=== PATIENT | male | born 1960 | race African-American/Black ===

== ENCOUNTER 2021-12-14 00:12 | Inpatient (IN) | payer SELFPAY ==
[~2021-12-14] VITALS: Ht 195.6 cm; Wt 73.2 kg
[2021-12-14] VITALS (7 sets, daily range): BP systolic 93–135; BP diastolic 53–80
--- NOTE | 2021-12-14 00:01 | NUR ---
Direct admit via EMS from [facility]. Patient states he's had a stroke before. Unable to give details. Speech is garbled. No facial droop noted. Right hand grasp slightly weaker than left. Able to read. Soaked in urine. Had 4 pairs of shorts. Belongings sent w/ Security. (to include glass pipe).
[2021-12-14 05:06] LABS: HEMATOCRIT 30.9 % (39.0-53.0); HEMOGLOBIN 10.9 g/dL (13.0-17.5); RED BLOOD COUNT 3.41 x10^6/uL (4.30-5.70); RED CELL DISTRIBUTION WIDTH 13.2 % (11.5-14.5); WHITE BLOOD COUNT 5.2 x10^3/uL (4.0-11.0)
[2021-12-14 05:34] LABS: ALBUMIN 3.1 g/dL (3.4-5.0); ALBUMIN/GLOBULIN RATIO 0.9 (1.0-1.7); CALCIUM 8.7 mg/dL (8.5-10.1); CREATININE 1.2 mg/dL (0.7-1.3); POTASSIUM 3.5 mmol/L (3.5-5.1); TOTAL BILIRUBIN 0.4 mg/dL (0.2-1.0); TOTAL PROTEIN 6.7 g/dL (6.4-8.2)
--- NOTE | 2021-12-14 07:08 | NUR ---
Consult to Dr Pavon called.
--- NOTE | 2021-12-14 11:34 | PDOC2 ---
CONSULT Date of Consult Date of Consult Neurology Consultation DATE: 12/14/21 TIME: 11:22 Reason for Consult Reason for Consult: Stroke Referring Physician Referring Physician: Dr. Enrico Baldwin History of Present Illness Reason for Visit: Balbir Maldonado is a 61-year-old man directly admitted from [facility]. I do not have any records at the time of my evaluation. The patient was the primary historian. He notes that he developed difficulty with speech and right-sided numbness and weakness. Last known normal is not known. He was not a candidate for intravenous alteplase. He does not complain of any headache. He has not noticed a change of thinking, vision or hearing. He has not been to a doctor for many years. It sounds as if he does not take any medications at home. He is not aware of any medical conditions. Past Medical History Past Medical History He denies any prior medical conditions. Renal/: Prostate Ca. Family History Family History He is not aware of any diseases that run in his family. Social History Social History He denies smoking tobacco, drinking alcohol or using recreational drugs. Allergies Allergies: Coded Allergies: No Known Drug Allergies (Unverified , 12/14/21) ROS Review of System Constitutional: Negative Eyes: He has not noticed a change of vision. HENT: Negative Respiratory: He denies cough. Cardiovascular: He has not had chest pain. GI: Does have a history of prostate cancer. : Negative Musculoskeletal: Negative Neurologic: He has had difficulty with speech, right-sided weakness and right-sided numbness. Hematologic: Negative Lymphatic: Negative Endocrine: He is not aware of ever having diabetes. Psychiatric: Negative Physical Exam Physical Exam He was alert, awake and cooperative. The speech was dysarthric and difficult to understand. Some of the words were understandable. He did not have word salad. He had a limited fund of recent and remote knowledge. Attention and concentration was intact. He was well-groomed and well-nourished. He was fully oriented. Examination of the cranial nerves revealed visual aguirre were not full to confrontation. He had a right lower quadrantanopsia. Extraocular movements were intact. The eyes were conjugate. Pursuit movements were smooth and saccadic movements were without dysmetria. The pupils were 2-3 millimeters and reacted to light. Funduscopic examination did not reveal papilledema, exudate or hem orrhage on the right. I was not able to get a good look at the left disc. Facial sensation was intact. The muscles of mastication were powerful symmetrically. He had a right facial droop. He had severe weakness to right smile. He was still able to close his right eye but it was delayed compared to the left. Hearing was intact to finger rub. The palate arch symmetrically and t he tongue was midline with full range of motion. Sternocleidomastoid and trapezius were powerful with weakness on the right. Muscle bulk and tone was normal. He did have some right arm and leg drift. There was no abnormal movement. The power was full and symmetric in the upper and lower extremities on the left. He had right hemiparesis with power 4+ on the right. Reflexes were 2/4 and symmetric in the upper extremities. Reflexes were absent at the knees and ankles bilaterally. The toes were downgoing bilaterally. Coordination testing with finger to nose, heel to glover, fine motor and rapid alternating movements was well performed on the left but there was ataxia and slowness on the right. The sensory examination was intact to pain, light touch, proprio ception, graphesthesia, cold thermal and vibration on the left but there was sensory shading on the right. There was a stocking distribution of sensory loss in both legs to above the ankles to sharp, cold thermal and vibration. There was no extinction to double simultaneous stimulation. The gait was not testable. Sitting balance was good. Auscultation of the carotid arteries did not reveal a bruit. Heart rhythm was regular without a murmur. Peripheral pulses are 2/4 at the wrists and feet. There was no edema or cyanosis of the extremities. Vitals VITALS Vital Signs Date Time Temp Pulse Resp B/P (MAP) Pulse Ox O2 Delivery O2 Flow Rate FiO2 12/14/21 11:00 98.1 71 16 93/53 (66) 98 Room Air 98.1 Labs Labs Laboratory Tests Test 12/14/21 04:30 White Blood Count 5.2 x10^3/uL (4.0-11.0) Red Blood Count 3.41 x10^6/uL (4.30-5.70) Hemoglobin 10.9 g/dL (13.0-17.5) Hematocrit 30.9 % (39.0-53.0) Mean Corpuscular Volume 91 fL (79-100) Mean Corpuscular Hemoglobin 32 pg (25-35) Mean Corpuscular Hemoglobin Concent 35 g/dL (31-37) Red Cell Distribution Width 13.2 % (11.5-14.5) Platelet Count 133 x10^3/uL (140-400) Sodium Level 139 mmol/L (136-145) Potassium Level 3.5 mmol/L (3.5-5.1) Chloride Level 106 mmol/L (98-107) Carbon Dioxide Level 24 mmol/L (21-32) Anion Gap 9 (6-14) Blood Urea Nitrogen 23 mg/dL (8-26) Creatinine 1.2 mg/dL (0.7-1.3) Estimated GFR (Cockcroft-Gault) 74.0 BUN/Creatinine Ratio 19 (6-20) Glucose Level 101 mg/dL (70-99) Calcium Level 8.7 mg/dL (8.5-10.1) Total Bilirubin 0.4 mg/dL (0.2-1.0) Aspartate Amino Transf (AST/SGOT) 29 U/L (15-37) Alanine Aminotransferase (ALT/SGPT) 29 U/L (16-63) Alkaline Phosphatase 57 U/L (46-116) Total Protein 6.7 g/dL (6.4-8.2) Albumin 3.1 g/dL (3.4-5.0) Albumin/Globulin Ratio 0.9 (1.0-1.7) Laboratory Tests Test 12/14/21 04:30 White Blood Count 5.2 x10^3/uL (4.0-11.0) Red Blood Count 3.41 x10^6/uL (4.30-5.70) Hemoglobin 10.9 g/dL (13.0-17.5) Hematocrit 30.9 % (39.0-53.0) Mean Corpuscular Volume 91 fL (79-100) Mean Corpuscular Hemoglobin 32 pg (25-35) Mean Corpuscular Hemoglobin Concent 35 g/dL (31-37) Red Cell Distribution Width 13.2 % (11.5-14.5) Platelet Count 133 x10^3/uL (140-400) Sodium Level 139 mmol/L (136-145) Potassium Level 3.5 mmol/L (3.5-5.1) Chloride Level 106 mmol/L (98-107) Carbon Dioxide Level 24 mmol/L (21-32) Anion Gap 9 (6-14) Blood Urea Nitrogen 23 mg/dL (8-26) Creatinine 1.2 mg/dL (0.7-1.3) Estimated GFR (Cockcroft-Gault) 74.0 BUN/Creatinine Ratio 19 (6-20) Glucose Level 101 mg/dL (70-99) Calcium Level 8.7 mg/dL (8.5-10.1) Total Bilirubin 0.4 mg/dL (0.2-1.0) Aspartate Amino Transf (AST/SGOT) 29 U/L (15-37) Alanine Aminotransferase (ALT/SGPT) 29 U/L (16-63) Alkaline Phosphatase 57 U/L (46-116) Total Protein 6.7 g/dL (6.4-8.2) Albumin 3.1 g/dL (3.4-5.0) Albumin/Globulin Ratio 0.9 (1.0-1.7) Assessment/Plan Assessment/Plan Patient is a 61-year-old man who clinically appears to have had a left hemispheric stroke in the distribution of the middle cerebral artery. He has deficits with dysarthric speech, right hemiparesis and right hemisensory loss. It is possible this is in the posterior fossa affecting some of the connections with the brainstem and cerebellum as well. He has a significant peripheral neuropathy which makes me concerned that there may be underlying diabetes. We will need to monitor for occult health issues that could be risk factors for stroke. The stroke order set will need to be activated. He will need to be evaluated by the therapies. I will reevaluate. KHUSHBU PRECIADO MD December 14, 2021 11:33
[2021-12-14] MEDS ORDERED: ACETAMINOPHEN 325 MG TABLET. PO PRN (11:45)
[2021-12-14] MEDS ORDERED: ASPIRIN CHEWABLE 81 MG TABLET. PO ONE (12:30)
--- NOTE | 2021-12-14 16:14 | HP ---
DATE OF SERVICE: 12/14/2021 ADMIT DATE: 12/14/2021 HISTORY OF PRESENT ILLNESS: The patient is a 61-year-old -[place] male patient, a , who presents with altered mental status. He was seen lying down in a garden by a concerned citizen and EMS was called in. The patient stated that he had been drinking. He drank about 5 beers according to him. The patient was celebrating his birthday. The patient reports he normally goes to the [place], has been there a couple of days visiting a friend for the . The patient stated he does not drink alcohol every day, preferably whiskey, but no preference. The patient does not smoke, reports no trauma. He was extensively investigated in the Emergency Room and has had lab work and imaging studies. His lab work showed his CBC to be unremarkable. His chemistry showed he has impaired kidney function. His D-dimer was high at 2.79; however, PT, INR and APTT are normal. Urinalysis was essentially unremarkable; however, toxic screen was positive for amphetamine, methamphetamine, cocaine, cannabinoids as well as alcohol. He has had a CT scan of the head, which basically showed that the patient has no evidence of an acute infarct or other acute parenchymal process, no evidence of acute intracranial hemorrhage, no evidence of intracranial mass or extraaxial fluid collection, no significant mass effect. He does have encephalomalacia in the left frontoparietal, anterior inferior left frontal lobes compatible with remote infarct, somewhat more mass-like area of slightly drowsiness, hypoattenuation in the inferolateral right frontal lobe, possibly also related to a remote infarct, but incompletely evaluated, has mild generalized volume loss with ventricular enlargement concordant to the degree of parenchymal volume loss. The visualized paranasal sinuses are clear. The visualized skull base and soft tissues are unremarkable. The patient was transferred to [facility] with altered mental status with abnormal findings on the CT scan with a plan to consider MRI for further evaluation and to consult the neurologist. PAST MEDICAL HISTORY: Significant for benign prostatic hypertrophy and overactive bladder together with prostate cancer. He also stated that he had 2 strokes before with resultant right-sided hemiplegia. PAST SURGICAL HISTORY: Significant for prostatectomy. FAMILY HISTORY: Unremarkable. SOCIAL HISTORY: He is single, lives alone. He does not smoke; however, he does drink alcohol and apparently using marijuana, cocaine and amphetamine. ALLERGIES: He has no known drug allergies. MEDICATIONS: He is on hyoscyamine 125 mcg sublingually every 4 hours, oxycodone/APAP 5/325 one tablet every 6 hours, Senna-S 1 tablet twice a day, scopolamine transdermal patch topically every 72 hours, and oxybutynin chloride 10 mg once a day. PHYSICAL EXAMINATION: GENERAL: On arrival to the Emergency Room, the patient looked well and was clearly in no apparent respiratory distress. There was no pallor, jaundice, cyanosis or thyromegaly. No jugular venous distention. No lower limb edema. VITAL SIGNS: His heart rate was 77, blood pressure was 139/81, temperature 97.7, respiratory rate was 18 and oxygen saturation was 99% on room air. HEAD, EYES, EARS, NOSE, AND THROAT: Normocephalic, atraumatic. NECK: Supple. HEART: Showed normal first and second heart sounds. No gallop or murmur. CHEST: Clear to auscultation. No crepitation or rhonchi. ABDOMEN: Scaphoid, soft, nontender. NEUROLOGIC: He was awake, alert, responding appropriately. He has all his cranial nerves intact except he has right-sided facial weakness. He has also right-sided hemiparesis. LABORATORY DATA: His lab work showed a white cell count of 6.2, hemoglobin 12, hematocrit 35, MCV 92 and platelet count of 151,000. Serum sodium was 136, potassium 4, chloride 101, bicarbonate 23, anion gap of 12, BUN 27, creatinine 1.5. Estimated GFR was 47 mL per minute. His glucose 100, calcium was 8.8, magnesium was 1.8. Total bilirubin, AST, ALT, alkaline phosphatase were normal. CK was 368. Troponin I high sensitivity was 23. Beta natriuretic peptide was 193. Total protein was 6.7, albumin was 3.6. His prothrombin time was 10.6, INR 1, APTT was less than 21; however, D-dimer was 2.79. Urinalysis showed the urine was yellow, clear with a pH of 5.5, specific gravity of 1.030. There was small amount of protein. The urine was negative for glucose, ketones, blood, nitrite and bilirubin, it was negative for leukocyte esterase, no rbc's, no wbc's and no bacteria. His toxicology screen was positive for amphetamine, methamphetamine, cocaine, cannabinoids, and alcohol. His influenza A and B were negative as well as the coronavirus by rapid antigen testing. His chest x-ray showed normal heart size with no evidence of focal airspace consolidation, pleural effusion, pneumothorax, probable mild bibasilar subsegmental atelectasis and/or scarring. Bones and soft tissues, no acute osseous abnormality. ASSESSMENT: The patient was transferred to [facility] with: 1. Altered mental status, likely due to polysubstance abuse. 2. The patient definitely has right-sided facial weakness and right-sided hemiparesis, likely due to an old infarct. He is known to have benign prostatic hypertrophy and prostate cancer, status post prostatectomy. PLAN: My plan is obviously to consult the neurologist as well as physical and occupational therapist. We will check his fasting lipid profile. AISHWARYA/SEBLE/FELICIANO DR: Rudolph TID: [id number]
[2021-12-15 02:36] VITALS: BP 127/73
[2021-12-15 05:52] LABS: CHOLESTEROL/HDL RATIO 3.4
[2021-12-15 06:31] VITALS: BP 139/76
--- NOTE | 2021-12-15 07:14 | RAD ---
EXAM: Carotid Doppler sonogram. HISTORY: Stroke. Atherosclerosis. TECHNIQUE: Baker scale and color Doppler sonographic evaluation of the neck with spectral waveform shilpa lysis was performed and static images are submitted for review. FINDINGS: There is mild atherosclerotic plaque involving the proximal internal carotid arteries. The peak systolic velocity within the right common carotid artery is 80 cm/sec. The peak systolic leyda ocity within the right internal carotid artery is 68 cm/sec and the end diastolic velocity within the right internal carotid artery is 20 to cm/sec. The right ICA/CCA ratio is 0.84. The peak systolic velocity within the left common carotid artery is 91 cm/sec. The peak systolic [place] within the left internal carotid artery is 66 cm/sec and the end diastolic velocity within the l eft internal carotid artery is 20 to cm/sec. The left ICA/CCA ratio is 0.78. There is normal antegrade flow within both vertebral arteries. IMPRESSION: Doppler findings consistent with less than 50 percent stenosis involving the internal car otid arteries. PQRS Compliance Statement - Stenosis calculations for CT, MR and conventional angiography are based u arlette measurement of the distal ICA diameter in accordance with the NASCET methodology. Stenosis calcu lations for carotid ultrasound studies are derived from validated velocity criteria which are known t o correlate with the NASCET methodology. Electronically signed by: Cary Pruitt MD (12/15/2021 7:11 AM) [id number]
[2021-12-15] MEDS ORDERED: GADOTERATE 7.5 MMOL/15ML VIAL. IVP ONE (09:15)
[2021-12-15] MEDS ORDERED: HALOPERIDOL LACTATE 5 MG/ML VIAL. IVP PRN (10:00)
[2021-12-15 11:00] VITALS: BP 135/87
[2021-12-15] MEDS: ASPIRIN CHEWABLE 81 MG TABLET. PO SCH (13:57)
[2021-12-15] MEDS: MULTIVIT INFUSN,ADULT 4,VIT K 10 ML, THIAMINE INJ 100 MG, FOLIC ACID INJ 1 MG in IV NOR... IV SCH (13:58)
[2021-12-15 14:54] VITALS: BP 131/81
--- NOTE | 2021-12-15 14:57 | RAD ---
EXAM: Brain MRI with and without contrast. HISTORY: Stroke or mass. TECHNIQUE: Multiplanar, multisequence magnetic resonance imaging of the brain was performed prior to and following the administration of intravenous contrast. COMPARISON: CT dated 12/13/2021. FINDINGS: There is restricted diffusion within the left frontotemporal junction, consistent with acut e infarction. There are a few foci of acute cortical infarction involving the adjacent left parietal and occipital lobes. There is slight increased signal on diffusion images associated with a right frontal lobe infarct lik saima due to T2 shine through artifact. This is chronic in appearance. There are also chronic infarct w ithin the medial left frontal lobe, left parietal lobe, left cerebellum and right caudate nucleus. There is mild cerebral volume loss. There is no mass effect or midline shift. There is no hydrocephal us. There is mild left necrosis associated with the aforementioned chronic left parietal infarct. The orbits are unremarkable. There is a small right maxillary sinus mucous retention cysts. There is minimal mastoid fluid. There are normal flow voids within the cerebral vessels. There is no suspiciou s calvarial lesion. There is no suspicious enhancing lesion. IMPRESSION: 1. Acute infarct involving the left frontotemporal junction and scattered surrounding acute cortical infarcts involving the left parietal and occipital lobes. 2. Chronic infarcts involving the bilateral frontal lobes, left parietal lobe, left cerebellum and ri ght caudate nucleus. 3. No suspicious enhancing lesion. Findings were discussed with Monika, the nurse caring for the patient, at 1450 hours on 12/15/2021. FOR INTERNAL CODING PURPOSES RESULT CODE: (C) Electronically signed by: Cary Pruitt MD (12/15/2021 2:55 PM) [id number]
--- NOTE | 2021-12-15 16:22 | PDOC ---
PROGRESS NOTES Date of Service DATE: 12/15/21 TIME: 16:17 Assessment Patient is a pleasant 61-year-old man with previous strokes whose had a new stroke in the left temporoparietal region. This has caused some expressive aphasia and right hemiparesis. The carotid Doppler did not reveal any hemodynamically significant stenosis. Echocardiogram is pending. Lipid profile revealed elevated LDL at 93. He is on aspirin and atorvastatin to reduce stroke risk. He will need to work with the therapist. Depending on his walking status will depend if he will require inpatient rehabilitation. He is already showing some signs of improvement with strength on the right side and speech. Plan He will work with the therapist. He will continue aspirin and atorvastatin. Blood pressure will need to be closely monitored and treated. Goal blood pressure ultimately 120/80. LDL cholesterol needs to be less than 70. Subjective I feel okay. I was not taking aspirin at home. Objective Vital Signs Date Time Temp Pulse Resp B/P (MAP) Pulse Ox O2 Delivery O2 Flow Rate FiO2 12/15/21 14:54 98.0 65 16 131/81 (98) 98 Room Air 98.0 Intake and Output 12/15/21 07:00 Intake Total 360 ml Balance 360 ml Intake Oral 360 ml # Voids 2 PHYSICAL EXAM He was alert, awake and cooperative. Speech appeared more fluent. Attention and concentration was intact. He was able to follow commands fairly well. Examination of the cranial nerves revealed visual aguirre appeared full. Extraocular movements were intact. The eyes were conjugate. Pursuit movements were smooth and saccadic eye movements were without dysmetria. Facial sensation was intact. Smile was symmetric and tongue was midline. Muscle bulk and tone was normal. There was no arm drift. Power was actually full in the upper and lower extremities. Sensation was intact to light touch. Review of Relevant I have reviewed the following items clifford (where applicable) has been applied. Labs Laboratory Tests Test 12/14/21 04:30 12/15/21 04:30 White Blood Count 5.2 x10^3/uL (4.0-11.0) Red Blood Count 3.41 x10^6/uL (4.30-5.70) Hemoglobin 10.9 g/dL (13.0-17.5) Hematocrit 30.9 % (39.0-53.0) Mean Corpuscular Volume 91 fL (79-100) Mean Corpuscular Hemoglobin 32 pg (25-35) Mean Corpuscular Hemoglobin Concent 35 g/dL (31-37) Red Cell Distribution Width 13.2 % (11.5-14.5) Platelet Count 133 x10^3/uL (140-400) Sodium Level 139 mmol/L (136-145) Potassium Level 3.5 mmol/L (3.5-5.1) Chloride Level 106 mmol/L (98-107) Carbon Dioxide Level 24 mmol/L (21-32) Anion Gap 9 (6-14) Blood Urea Nitrogen 23 mg/dL (8-26) Creatinine 1.2 mg/dL (0.7-1.3) Estimated GFR (Cockcroft-Gault) 74.0 BUN/Creatinine Ratio 19 (6-20) Glucose Level 101 mg/dL (70-99) Calcium Level 8.7 mg/dL (8.5-10.1) Total Bilirubin 0.4 mg/dL (0.2-1.0) Aspartate Amino Transf (AST/SGOT) 29 U/L (15-37) Alanine Aminotransferase (ALT/SGPT) 29 U/L (16-63) Alkaline Phosphatase 57 U/L (46-116) Total Protein 6.7 g/dL (6.4-8.2) Albumin 3.1 g/dL (3.4-5.0) Albumin/Globulin Ratio 0.9 (1.0-1.7) Triglycerides Level 65 mg/dL (0-150) Cholesterol Level 150 mg/dL (0-200) LDL Cholesterol, Calculated 93 mg/dL (0-100) VLDL Cholesterol, Calculated 13 mg/dL (0-40) Non-HDL Cholesterol Calculated 106 mg/dL (0-129) HDL Cholesterol 44 mg/dL (40-60) Cholesterol/HDL Ratio 3.4 Laboratory Tests Test 12/15/21 04:30 Triglycerides Level 65 mg/dL (0-150) Cholesterol Level 150 mg/dL (0-200) LDL Cholesterol, Calculated 93 mg/dL (0-100) VLDL Cholesterol, Calculated 13 mg/dL (0-40) Non-HDL Cholesterol Calculated 106 mg/dL (0-129) HDL Cholesterol 44 mg/dL (40-60) Cholesterol/HDL Ratio 3.4 Medications Current Medications Acetaminophen (Tylenol) 650 mg PRN Q6HRS PRN PO MILD PAIN / TEMP > 100.3'F; Start 12/14/21 at 11:45 Aspirin (Aspirin Chewable) 81 mg 1X ONCE PO ; Start 12/14/21 at 12:30; Stop 12/14/21 at 12:31; Status DC Aspirin (Aspirin Chewable) 81 mg [id number] PO Last administered on 12/15/21at 13:57; Start 12/15/21 at 08:00 Gadoterate Meglumine (Clariscan) 15 ml 1X ONCE IVP Last administered on 12/15/21at 14:14; Start 12/15/21 at 09:15; Stop 12/15/21 at 09:17; Status DC Multivitamins 10 ml/Thiamine HCl 100 mg/Folic Acid 1 mg/Sodium Chloride 1,011.2 ml @ 100 mls/ hr DAILY IV Last administered on 12/15/21at 13:58; Start 12/15/21 at 11:00; Stop 12/19/21 at 19:07 Lorazepam (Ativan Inj) 2 mg PRN Q1HR PRN IV For CIWA 8-14; Start 12/15/21 at 10:00 Lorazepam (Ativan Inj) 4 mg PRN Q1HR PRN IV For CIWA 15 or greater; Start 12/15/21 at 10:00 Haloperidol Lactate (Haldol Inj) 5 mg PRN Q4HRS PRN IVP Hallucinatns,Confusn,Delirium; Start 12/15/21 at 10:00 Vitals/I & O Vital Sign - Last 24 Hours 12/14/21 12/14/21 12/15/21 12/15/21 19:46 22:30 02:36 06:31 Temp 98.3 98.5 98.1 98.0 98.3 98.5 98.1 98.0 Pulse 81 68 66 62 Resp 16 18 16 16 B/P (MAP) 132/79 (96) 127/77 (94) 127/73 (91) 139/76 (97) Pulse Ox 98 99 100 98 O2 Delivery Room Air Room Air Room Air Room Air 12/15/21 12/15/21 11:00 14:54 Temp 98.0 98.0 98.0 98.0 Pulse 76 65 Resp 16 16 B/P (MAP) 135/87 (103) 131/81 (98) Pulse Ox 98 98 O2 Delivery Room Air Room Air Intake and Output 12/14/21 12/14/21 12/15/21 15:00 23:00 07:00 Intake Total 360 ml 0 ml 0 ml Balance 360 ml 0 ml 0 ml Justicifation of Admission Dx: Justifications for Admission: Justification of Admission Dx: N/A KHUSHBU PRECIADO MD December 15, 2021 16:22
[2021-12-15 19:36] VITALS: BP 133/80
--- NOTE | 2021-12-15 20:00 | NUR ---
Pt's friends Milagro Stovall ([phone]) and Luis ([phone]) called to let me know that pt was being evicted from home at [address] [place] [address] on the evening of 12/15/21. Una was allowing belongings to be stored in shed outside the residence. Friends state that pt is a and should have some resources available.
[2021-12-15] MEDS: ATORVASTATIN CALCIUM 20 MG TABLET PO SCH (20:23)
--- NOTE | 2021-12-15 20:36 | PN ---
DATE: 12/15/2021 SUBJECTIVE: The patient is resting, slightly propped up in bed, in no apparent respiratory distress. He was admitted yesterday with altered mental status, likely due to polysubstance abuse including alcohol. 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 Apparently, he was agitated this morning and was threatening to leave, although by the time I saw him, he was in bed. PHYSICAL EXAMINATION: GENERAL: When I examined him, he was pale, but not jaundiced or cyanosed. No lymphadenopathy, no thyromegaly, no jugular venous distention. No lower limb edema. VITAL SIGNS: His heart rate was 76, blood pressure was 135/87, temperature was 98, respiratory rate was 16 and oxygen saturation was 98% on room air. HEAD, EYES, EARS, NOSE AND THROAT: Normocephalic, atraumatic. NECK: Supple. HEART: Normal first and second heart sounds. No gallop, rub or murmur. CHEST: Clear to auscultation, no crepitation or rhonchi. ABDOMEN: Distended, soft, nontender. NEUROLOGIC: He was awake, alert, responding appropriately. He has right-sided facial weakness and right-sided hemiparesis. LABORATORY DATA: This morning showed his serum triglycerides were 65. Total cholesterol 150, LDL was 93, VLDL was 13, HDL was 44 and ratio was 3.4. His bilateral carotid Doppler ultrasound showed that the findings are consistent with less than 50% stenosis involving the internal carotid arteries. ASSESSMENT: 1. In summary, this is a 61-year-old -[place] male patient who presented with altered mental status, felt to be likely due to polysubstance abuse including amphetamine, methamphetamine, cocaine and cannabinoids as well as alcohol. 2. 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 3. Benign prostatic hypertrophy. 4. Prostate cancer, status post prostatectomy. PLAN: To continue with alcohol withdrawal protocol. Continue physical and occupational therapy. He is scheduled for an MRI of the brain tomorrow. AISHWARYA/CHARLOTTE DR: Rudolph TID: [id number]
[2021-12-15 23:00] VITALS: BP 167/87
[2021-12-16 02:43] VITALS: BP 128/69
[2021-12-16 07:00] VITALS: BP 114/69
[2021-12-16] MEDS: MULTIVIT INFUSN,ADULT 4,VIT K 10 ML, THIAMINE INJ 100 MG, FOLIC ACID INJ 1 MG in IV NOR... IV SCH (08:35)
[2021-12-16] MEDS: ASPIRIN CHEWABLE 81 MG TABLET. PO SCH (08:35)
--- NOTE | 2021-12-16 09:52 | PDOC ---
PROGRESS NOTES Date of Service DATE: 12/16/21 TIME: 09:47 Assessment Acute infarct involving the left frontotemporal junction and scattered surrounding acute cortical infarcts involving the left parietal and occipital lobes, chronic infarcts involving the bilateral frontal lobes, left parietal lobe, left cerebellum and right caudate nucleus. Aphasia and right hemiparesis are improving Hyperlipidemia is pending. Lipid profile revealed elevated LDL at 93. He is on aspirin and atorvastatin to reduce stroke risk. He will need to work with the therapist. Depending on his walking status will depend if he will require inpatient rehabilitation. He is already showing some signs of improvement with strength on the right side and speech. Plan Await echocardiogram Rehab Aspirin and atorvastatin. I understand he was infected from his home, needs placement Subjective No complaints Objective Vital Signs Date Time Temp Pulse Resp B/P (MAP) Pulse Ox O2 Delivery O2 Flow Rate FiO2 12/16/21 07:00 98.1 62 17 114/69 (84) 96 Room Air 98.1 Intake and Output 12/16/21 07:00 Intake Total 1191.2 ml Balance 1191.2 ml Intake Oral 180 ml IV Total 1011.2 ml # Voids 1 PHYSICAL EXAM Alert. Speech fluent, does not know date or location PERRL. EOMI. CN: no focal findings. Muscle tone: normal. Muscle strength: 5/5 DTR: 2+ Plantar reflex: Flexor Gait: not examined in bed. Sensory exam: no abnormal findings. No cerebellar signs elicited. Review of Relevant I have reviewed the following items clifford (where applicable) has been applied. Labs Laboratory Tests Test 12/15/21 04:30 Triglycerides Level 65 mg/dL (0-150) Cholesterol Level 150 mg/dL (0-200) LDL Cholesterol, Calculated 93 mg/dL (0-100) VLDL Cholesterol, Calculated 13 mg/dL (0-40) Non-HDL Cholesterol Calculated 106 mg/dL (0-129) HDL Cholesterol 44 mg/dL (40-60) Cholesterol/HDL Ratio 3.4 Medications Current Medications Acetaminophen (Tylenol) 650 mg PRN Q6HRS PRN PO MILD PAIN / TEMP > 100.3'F; Start 12/14/21 at 11:45 Aspirin (Aspirin Chewable) 81 mg 1X ONCE PO ; Start 12/14/21 at 12:30; Stop 12/14/21 at 12:31; Status DC Aspirin (Aspirin Chewable) 81 mg DAILYWBKFT PO Last administered on 12/16/21at 08:35; Start 12/15/21 at 08:00 Gadoterate Meglumine (Clariscan) 15 ml 1X ONCE IVP Last administered on 12/15/21at 14:14; Start 12/15/21 at 09:15; Stop 12/15/21 at 09:17; Status DC Multivitamins 10 ml/Thiamine HCl 100 mg/Folic Acid 1 mg/Sodium Chloride 1,011.2 ml @ 100 mls/ hr DAILY IV Last administered on 12/16/21at 08:35; Start 12/15/21 at 11:00; Stop 12/19/21 at 19:07 Lorazepam (Ativan Inj) 2 mg PRN Q1HR PRN IV For CIWA 8-14; Start 12/15/21 at 10:00 Lorazepam (Ativan Inj) 4 mg PRN Q1HR PRN IV For CIWA 15 or greater; Start 12/15/21 at 10:00 Haloperidol Lactate (Haldol Inj) 5 mg PRN Q4HRS PRN IVP Hallucinatns,Confusn,Delirium; Start 12/15/21 at 10:00 Atorvastatin Calcium (Lipitor) 20 mg QHS PO Last administered on 12/15/21at 20:23; Start 12/15/21 at 21:00 Vitals/I & O Vital Sign - Last 24 Hours 12/15/21 12/15/21 12/15/21 12/15/21 11:00 14:54 19:36 23:00 Temp 98.0 98.0 98.4 98.3 98.0 98.0 98.4 98.3 Pulse 76 65 66 66 Resp 16 16 16 18 B/P (MAP) 135/87 (103) 131/81 (98) 133/80 (97) 167/87 (113) Pulse Ox 98 98 97 96 O2 Delivery Room Air Room Air Room Air Room Air 12/16/21 12/16/21 02:43 07:00 Temp 97.9 98.1 97.9 98.1 Pulse 60 62 Resp 16 17 B/P (MAP) 128/69 (88) 114/69 (84) Pulse Ox 98 96 O2 Delivery Room Air Room Air Intake and Output 12/15/21 12/15/21 12/16/21 15:00 23:00 07:00 Intake Total 180 ml 1011.2 ml Balance 180 ml 1011.2 ml Images Brain MRI with and without contrast. HISTORY: Stroke or mass. TECHNIQUE: Multiplanar, multisequence magnetic resonance imaging of the brain was performed prior to and following the administration of intravenous contrast. COMPARISON: CT dated 12/13/2021. FINDINGS: There is restricted diffusion within the left frontotemporal junction, consistent with acute infarction. There are a few foci of acute cortical infarction involving the adjacent left parietal and occipital lobes. There is slight increased signal on diffusion images associated with a right frontal lobe infarct likely due to T2 shine through artifact. This is chronic in appearance. There are also chronic infarct within the medial left frontal lobe, left parietal lobe, left cerebellum and right caudate nucleus. There is mild cerebral volume loss. There is no mass effect or midline shift. There is no hydrocephalus. There is mild left necrosis associated with the aforementioned chronic left parietal infarct. The orbits are unremarkable. There is a small right maxillary sinus mucous retention cysts. There is minimal mastoid fluid. There are normal flow voids within the cerebral vessels. There is no suspicious calvarial lesion. There is no suspicious enhancing lesion. IMPRESSION: 1. Acute infarct involving the left frontotemporal junction and scattered surrounding acute cortical infarcts involving the left parietal and occipital lobes. 2. Chronic infarcts involving the bilateral frontal lobes, left parietal lobe, left cerebellum and right caudate nucleus. 3. No suspicious enhancing lesion. Carotid Doppler sonogram. HISTORY: Stroke. Atherosclerosis. TECHNIQUE: Baker scale and color Doppler sonographic evaluation of the neck with spectral waveform analysis was performed and static images are submitted for review. FINDINGS: There is mild atherosclerotic plaque involving the proximal internal carotid arteries. The peak systolic velocity within the right common carotid artery is 80 cm/sec. The peak systolic velocity within the right internal carotid artery is 68 cm/sec and the end diastolic velocity within the right internal carotid artery is 20 to cm/sec. The right ICA/CCA ratio is 0.84. The peak systolic velocity within the left common carotid artery is 91 cm/sec. The peak systolic velocity within the left internal carotid artery is 66 cm/sec and the end diastolic velocity within the left internal carotid artery is 20 to cm/sec. The left ICA/CCA ratio is 0.78. There is normal antegrade flow within both vertebral arteries. IMPRESSION: Doppler findings consistent with less than 50 percent stenosis involving the internal carotid arteries. Justicifation of Admission Dx: Justifications for Admission: Justification of Admission Dx: N/A TIFFANY ESCALERA MD December 16, 2021 09:52
[2021-12-16 10:20] LABS: HEMOGLOBIN A1C 5.1 % (4.8-5.6)
[2021-12-16] MEDS ORDERED: ATOR20TA PO (10:49)
[2021-12-16] MEDS ORDERED: ASPI-630 PO (10:49)
[2021-12-16 11:00] VITALS: BP 154/74
[2021-12-16 15:00] VITALS: BP 147/79
--- NOTE | 2021-12-16 16:09 | NUR ---
SS following for discharge planning. SS reviewed pt chart and discussed with pt RN. Pt is homeless and is currently on room air. Pt evicted from home on Thursday. Pt is currently on room air. Pt has substance issues with alcohol, THC, Cocaine, and Meth. PAT team met with pt today and provided resources. Pt requesting to go to [facility] or [facility]. SS contacted [facility] and was notified that pt cannot admit there unless he physically completes an intake and screening at the [facility] and then waits for his spot. SS was notified not to discharge pt to [facility]. SS contacted [facility], ext [phone] and left voicemail for [facility]. [facility] hotline made for concerns with social situation. Intake# [id number]. SS will continue to follow for discharge planning.
[2021-12-16 19:00] VITALS: BP 172/92
[2021-12-16] MEDS: ATORVASTATIN CALCIUM 20 MG TABLET PO SCH (20:08)
[2021-12-17 07:00] VITALS: BP 149/90
[2021-12-17] MEDS: MULTIVIT INFUSN,ADULT 4,VIT K 10 ML, THIAMINE INJ 100 MG, FOLIC ACID INJ 1 MG in IV NOR... IV SCH (08:32)
[2021-12-17] MEDS: ASPIRIN CHEWABLE 81 MG TABLET. PO SCH (08:32)
[2021-12-17 11:00] VITALS: BP 101/71
--- NOTE | 2021-12-17 11:17 | NUR ---
SS following up with discharge planning. SS reviewed pt chart and discussed with pt RN. Pt is currently on room air. SS received phone contact from [facility] at [facility] for [facility], ext. [phone]. SS was notified that pt can admit and needs to go to [facility] for medical examination prior to admitting to [facility]. Pt can admit today. Pt to bring masks and only two bags with him. Pt will discharge today and go to [facility] ER at 1200 via [facility]. Pt and pt's RN notified.
--- NOTE | 2021-12-17 12:03 | NUR ---
Discharge Note: [facility] Discharge instructions and discharge home medications reviewed with Patient and a copy given. All questions have been answered and understanding verbalized. The following instructions and handouts were given: Transport to [place] ER Discontinued lines and drains: Removed IV and surveillance monitor Patient discharged to [place] ER to be taken to [facility]
--- NOTE | 2021-12-18 09:17 | PN ---
DATE: 12/17/2021 SUBJECTIVE: The patient is resting, slightly propped up in bed, in no apparent distress. On questioning him, denied any complaint. The nursing staff did not voice any concerns that he has eventful night. I made an attempt to discharge him yesterday, he was evicted from his house and he is homeless; however, social work associate made an attempt to place him at the [facility] or [facility] for [facility]. So far, he was not accepted in either. PHYSICAL EXAMINATION: GENERAL: When I examined him this morning, he looked well and was clearly in no apparent respiratory distress, pale, but no jaundiced or cyanosis. No thyromegaly. No jugular venous distention. No lower limb edema. VITAL SIGNS: His heart rate was 62, blood pressure was 149/90, temperature was 98.4, respiratory rate was 18 and oxygen saturation was 98%. The rest of clinical exam is stable. ASSESSMENT: 1. The patient presented with altered mental status, felt to be likely due to polysubstance abuse including amphetamine, methamphetamine, cocaine, cannabinoids as well as alcohol. 2. He was also found to have right-sided facial weakness and right-sided hemiparesis, likely due to acute infarct involving the left frontotemporal junction and scattered surrounding acute cortical infarct involving left parietal and occipital lobes. 3. The patient has chronic infarct involving the bilateral frontal lobes, left parietal lobe, left cerebellum and right caudate nucleus. 4. Aphasia and right-sided hemiparesis are improving. 5. Hyperlipidemia. PLAN: To continue with aspirin and Lipitor. Continue with alcohol withdrawal protocol. Await placement. Continue with physical and occupational therapy. AISHWARYA/MAHIN/RICH DR: AISHWARYA/luiz TID: [id number]
== END 2021-12-17 11:50 | disposition home or self-care (01) | DRG 917 ==
LOC: 6 SOUTH 00:12
PROVIDERS: ADMIT Internal Medicine; ATTEND Internal Medicine
DX: T40.5X1A Poisoning by cocaine, accidental (unintentional), initial encounter (principal); I63.9 Cerebral infarction, unspecified; I69.351 Hemiplegia and hemiparesis following cerebral infarction affecting right dominant side; R47.01 Aphasia; T43.621A Poisoning by amphetamines, accidental (unintentional), initial encounter; T40.721A Poisoning by synthetic cannabinoids, accidental (unintentional), initial encounter; G93.89 Other specified disorders of brain; C61 Malignant neoplasm of prostate; Z60.2 Problems related to living alone; F12.10 Cannabis abuse, uncomplicated; N40.0 Benign prostatic hyperplasia without lower urinary tract symptoms; F15.10 Other stimulant abuse, uncomplicated; F14.10 Cocaine abuse, uncomplicated; E78.5 Hyperlipidemia, unspecified; R29.810 Facial weakness; R47.1 Dysarthria and anarthria; Z79.82 Long term (current) use of aspirin; Z90.79 Acquired absence of other genital organ(s); Y92.89 Other specified places as the place of occurrence of the external cause; Z59.00 Homelessness unspecified; Z79.899 Other long term (current) drug therapy
CPT/HCPCS: 36415; 70553; 80053; 80061; 83036; 85027; 93306; 93880; A9575; J3411; J3490; J7030; 92610-GN; 97110-GO; 97535-GO; C8929; G0378